=== PATIENT | female | born 1990 | race African-American/Black ===

== ENCOUNTER 2017-08-07 11:27 | Emergency (ER) | payer MEDICARE, MEDICAID ==
[~2017-08-07] VITALS: Ht 170.2 cm; Wt 49.9 kg
[2017-08-07] MEDS ORDERED: AZITHROMYCIN 250 MG TABLET ONE (11:51)
[2017-08-07] MEDS ORDERED: CEFTRIAXONE 500 MG VIAL ONE (11:51)
[2017-08-07] MEDS ORDERED: ACETAMINOPHEN ES 500 MG TABLET ONE (11:51)
[2017-08-07] MEDS ORDERED: LIDOCAINE /MPF 1% VIAL 5 ML VIAL ONE (11:52)
[2017-08-07] MEDS ORDERED: CEFTRIAXONE 500 MG VIAL IM ONE (12:00)
[2017-08-07] MEDS ORDERED: AZITHROMYCIN 250 MG TABLET PO ONE (12:00)
[2017-08-07] MEDS ORDERED: IBUPROFEN 600 MG TABLET PO ONE ×2 (12:03→12:30)
[2017-08-07] MEDS: ACETAMINOPHEN ES 500 MG TABLET PO ONE ×2 (12:05→12:09)
--- NOTE | 2017-08-07 12:09 | NUR ---
PATIENT STATING SHE IS ALLERGICE TO TYLENOL. INFORMED, CHANGED ORDER TO MOTRIN. TYLENOL 1000MG WASTED AND MOTRIN ADMINISTERED INSTEAD.
[2017-08-07 12:26] LABS: APPEARANCE,URINE Clear (CLEAR); BILIRUBIN,URINE Negative (NEGATIVE); BLOOD, URINE Negative Ery/uL (NEGATIVE); COLOR,URINE Yellow (YELLOW); KETONES,URINE Negative (NEGATIVE); LEUKOCYTE ESTERASE ,URINE Negative (NEGATIVE); NITRITE, URINE Negative (NEGATIVE); PROTEIN,URINE Negative (NEGATIVE); UGLUCOSE Negative (NEGATIVE); UROBILINOGEN,URINE 0.2 EU/dL (0.2)
--- NOTE | 2017-08-07 12:35 | NUR ---
Patient discharged to home in stable condition. Written and verbal after care instructions given. Patient verbalizes understanding of instruction.
[2017-08-07 12:55] VITALS: BP 128/82
== END 2017-08-07 12:59 | disposition home or self-care (01) ==
LOC: ER 11:29
DX: N76.0 Acute vaginitis (principal); F17.200 Nicotine dependence, unspecified, uncomplicated
CPT/HCPCS: 81001; 87070; 87081; 87086; 87110; 87210; 87491; 87591; 96372; 99284; A4606; J0696; J3490; 81000-TC; Z7610

== ENCOUNTER 2018-08-31 21:10 | Emergency (ER) | payer MEDICARE, MEDICAID ==
[~2018-08-31] VITALS: Ht 170.2 cm; Wt 49.0 kg
--- NOTE | 2018-08-31 21:40 | NUR ---
URINE COLLECTED AND SENT TO LAB
[2018-08-31 21:47] VITALS: BP 129/91
--- NOTE | 2018-08-31 22:05 | NUR ---
SHA YA AT BEDSIDE FOR EVALUATION
[2018-08-31 22:25] LABS: APPEARANCE,URINE Clear (CLEAR); BILIRUBIN,URINE Negative (NEGATIVE); BLOOD, URINE Negative Ery/uL (NEGATIVE); COLOR,URINE Yellow (YELLOW); KETONES,URINE Negative (NEGATIVE); LEUKOCYTE ESTERASE ,URINE Negative (NEGATIVE); NITRITE, URINE Negative (NEGATIVE); PROTEIN,URINE Negative (NEGATIVE); UGLUCOSE Negative (NEGATIVE); UROBILINOGEN,URINE 0.2 EU/dL (0.2)
--- NOTE | 2018-08-31 23:50 | NUR ---
PA AT BEDSIDE WITH SARY CAMPOS FOR PELVIC EXAM
--- NOTE | 2018-08-31 23:59 | NUR ---
Patient discharged to home in stable condition. Written and verbal after care instructions given. Patient verbalizes understanding of instruction. Pt ambulatory with a steady gait. Pt refused discharge instruction paperwork
== END 2018-09-01 | disposition home or self-care (01) ==
LOC: ER 21:14
DX: N76.0 Acute vaginitis (principal); G40.909 Epilepsy, unspecified, not intractable, without status epilepticus; G89.29 Other chronic pain; M54.9 Dorsalgia, unspecified; F17.200 Nicotine dependence, unspecified, uncomplicated; Z98.890 Other specified postprocedural states; Z86.19 Personal history of other infectious and parasitic diseases
CPT/HCPCS: 81000-TC; 84703-TC; 87081-TC; 87210-TC; 87491; 87591; A6402

== ENCOUNTER 2019-10-07 17:37 | Emergency (ER) | payer MEDICARE, MEDICAID ==
[~2019-10-07] VITALS: Ht 170.2 cm; Wt 49.9 kg
--- NOTE | 2019-10-07 17:45 | NUR ---
VAGINAL DISCHARGE, AND FOUL ODOR X 4 DAYS. PATIENT A/OX4, BREATHING EVEN AND UNLABORED, NO SOB NOTED, NEEDS ATTENDED, KEPT COMFORTABLE.
--- NOTE | 2019-10-07 18:46 | NUR ---
URINE SENT TO LAB.
[2019-10-07 18:55] LABS: APPEARANCE,URINE Clear (CLEAR); BILIRUBIN,URINE Negative (NEGATIVE); BLOOD, URINE Negative Ery/uL (NEGATIVE); COLOR,URINE Yellow (YELLOW); KETONES,URINE Negative (NEGATIVE); LEUKOCYTE ESTERASE ,URINE Negative (NEGATIVE); NITRITE, URINE Negative (NEGATIVE); PH,URINE 7.5 (5.0-8.0); PROTEIN,URINE Negative (NEGATIVE); UGLUCOSE Negative (NEGATIVE); UROBILINOGEN,URINE 0.2 EU/dL (0.2)
--- NOTE | 2019-10-07 21:11 | NUR ---
Patient discharged to home in stable condition. Written and verbal after care instructions given. Patient verbalizes understanding of instruction.
[2019-10-07 21:14] VITALS: BP 115/77
== END 2019-10-07 21:15 | disposition home or self-care (01) ==
LOC: ER 17:42
DX: B37.3 Candidiasis of vulva and vagina (principal); G40.909 Epilepsy, unspecified, not intractable, without status epilepticus; G89.29 Other chronic pain; Z98.890 Other specified postprocedural states
CPT/HCPCS: 81000-TC; 84703-TC; 87210-TC; 87491; 87591